=== PATIENT | female | born 1985 | race American Indian/Alaskan Native ===

== ENCOUNTER 2019-01-25 23:31 | Emergency (ER) | payer MEDICAID ==
[2019-01-26 00:06] VITALS: BP 108/55; PULSE 69
[2019-01-26] MEDS ORDERED: Prochlorperazine 10 MG/2 ML SDV IVPUSH ONE (00:38)
[2019-01-26] MEDS ORDERED: diphenhydrAMINE 50 MG/ML SDV IVPUSH ONE (00:38)
[2019-01-26] MEDS ORDERED: Ketorolac 30 MG/ML SDV IVPUSH ONE (00:39)
--- NOTE | 2019-01-26 00:39 | EDM.PDOC ---
ED HPI GENERAL MEDICAL PROBLEM - General Chief Complaint: Headache Stated Complaint: MIGRAINE Time Seen by Provider: 01/26/19 00:39 Source of Information: Reports: Patient History Limitations: Reports: No Limitations - History of Present Illness INITIAL COMMENTS - FREE TEXT/NARRATIVE: pt arrived with a frontal headache which she would consider the worse headache of her life. She has not vomited but she is nauseated. She is having some blurring of her vision. She is dizzy when she goes to stand up. Onset: Today, Other ( started about noon. ) Duration: Hour(s): Location: Reports: Head Associated Symptoms: Reports: Headaches, Nausea/Vomiting migraine Pain Score (Numeric/FACES): 8 - Related Data Allergies Allergy/AdvReac Type Severity Reaction Status Date / Time No Known Allergies Allergy Verified 01/26/19 00:39 Home Meds: Home Meds buPROPion [buPROPion XL] 150 mg PO DAILY 01/26/19 [History] ED ROS GENERAL - Review of Systems Review Of Systems: See Below Constitutional: Reports: No Symptoms HEENT: Reports: No Symptoms Respiratory: Reports: No Symptoms Cardiovascular: Reports: No Symptoms Endocrine: Reports: No Symptoms GI/Abdominal: Reports: Nausea : Reports: No Symptoms Musculoskeletal: Reports: No Symptoms Skin: Reports: No Symptoms Neurological: Reports: Headache Psychiatric: Reports: Anxiety - Physical Exam Exam: See Below Text/Narrative:: pt appeared very uncomfortable. She was having a great deal of lit intolerance. Exam Limited By: No Limitations General Appearance: Alert, Anxious, Moderate Distress Ears: Normal TMs Nose: Normal Inspection Throat/Mouth: Normal Inspection Head Exam: Atraumatic Neck: Normal Inspection Respiratory/Chest: No Respiratory Distress Cardiovascular: Regular Rate, Rhythm GI/Abdominal: Soft, Non-Tender (Female) Exam: Deferred Rectal (Female) Exam: Deferred Neuro Exam (Abbreviated): Alert, Oriented, Normal Cognition, Other (pupils equal and reactive. ) Back Exam: Normal Inspection Extremities: Normal Inspection Psychiatric: Anxious Course - Vital Signs Last Recorded V/S: Last Vital Signs Temp 36.6 C 01/26/19 00:29 Pulse 69 01/26/19 00:29 Resp 15 01/26/19 00:29 BP 108/55 L 01/26/19 00:29 Pulse Ox 96 01/26/19 00:29 - Orders/Labs/Meds Orders: Active Orders 24 hr Category Date Time Status Sodium Chloride 0.9% [Normal Saline] 1,000 ml Med 01/26/19 00:45 Active IV ASDIRECTED Medication Orders Sodium Chloride (Normal Saline) 1,000 mls @ 999 mls/hr IV ASDIRECTED YORDAN Last Admin: 01/26/19 01:01 Dose: 999 mls/hr Meds: Medications Generic Name Dose Route Start Last Admin Trade Name Freq PRN Reason Stop Dose Admin Sodium Chloride 1,000 mls @ 999 mls/hr 01/26/19 00:45 01/26/19 01:01 Normal Saline IV 999 mls/hr ASDIRECTED YORDAN Administration Discontinued Medications Generic Name Dose Route Start Last Admin Trade Name Freq PRN Reason Stop Dose Admin Diphenhydramine HCl 50 mg 01/26/19 00:38 01/26/19 01:10 Benadryl IVPUSH 01/26/19 00:39 50 mg ONETIME ONE Administration Ketorolac Tromethamine 30 mg 01/26/19 00:39 01/26/19 01:08 Toradol IVPUSH 01/26/19 00:40 30 mg ONETIME ONE Administration Prochlorperazine Edisylate 10 mg 01/26/19 00:38 01/26/19 01:03 Compazine IVPUSH 01/26/19 00:39 10 mg ONETIME ONE Administration - Re-Assessments/Exams Free Text/Narrative Re-Assessment/Exam: 01/26/19 01:38 pt was given fluid, orodol, compaxine, benadryl. She states her painis down to a 4 and she is feeling much better. Her head scan was neg. Departure - Departure Time of Disposition: 01:33 Disposition: Home, Self-Care 01 Condition: Fair Clinical Impression: Migraine - Discharge Information Referrals: Champ Finn MD [Primary Care Provider] - Forms: ED Department Discharge Care Plan Goals: rest and low activity for next 24 hours. - My Orders Last 24 Hours: My Active Orders 01/26/19 00:45 Sodium Chloride 0.9% [Normal Saline] 1,000 ml IV ASDIRECTED - Assessment/Plan Last 24 Hours: My Active Orders 01/26/19 00:45 Sodium Chloride 0.9% [Normal Saline] 1,000 ml IV ASDIRECTED
[2019-01-26] MEDS ORDERED: Sodium Chloride 0.9% 1,000 ML IV SCH (00:45)
--- NOTE | 2019-01-26 01:21 | CRLCT ---
INDICATION: headache TECHNIQUE: CT Head without i.v. contrast. COMPARISON: 02/14/2018 FINDINGS: CSF space: The ventricles are normal for age. Brain: No evidence of mass, acute infarction or hemorrhage is seen. No mass-effect or midline shift is seen. The brain parenchyma is otherwise normal in appearance with preservation of the garcía-white matter junction. Calvarium: The visualized paranasal sinuses are well aerated. The mastoid air cells are clear. The visualized orbits are grossly unremarkable. The calvarium is unremarkable in appearance with no fractures identified. IMPRESSION: 1. No evidence of acute infarction, intracranial hemorrhage, or mass-effect seen. Please note that all CT scans at this facility use dose modulation, iterative reconstruction, and/or weight-based dosing when appropriate to reduce radiation dose to as low as reasonably achievable. Dictated by: Roland Hutchison MD @ 01/26/2019 01:20:18 (Electronically Signed)
== END 2019-01-26 01:48 | disposition home or self-care (01) ==
LOC: JP.ED 23:31
DX: G43.909 Migraine, unspecified, not intractable, without status migrainosus (principal); Z79.899 Other long term (current) drug therapy
CPT/HCPCS: 70450; 96361; 96374; 96375; 99283; J0780; J1200; J1885; J7030